=== PATIENT | female | born 1930 | race Caucasian/White ===

== ENCOUNTER 2017-07-03 19:01 | Emergency (ER) | payer OTHER, MEDICARE ==
--- NOTE | 2017-07-03 19:34 | PDOC ---
History of Present Illness - General History Source: Patient Exam Limitations: No Limitations - History of Present Illness Initial Comments: 07/03/17 19:54 The patient is an 87 year old female, with significant past medical history of HTN, fibromyalgia, compression fractures in the back, rotator cuff injury, arthritis, who presents to the emergency complaining of 1 week of dysuria. The patient explains that she is incontinent and wears a pad normally. However, she never experienced this pain with urination. She notes that she always has microscopic blood in her urine and it runs in her family. She visited an Urgent Care prior to coming into the emergency room and was told that she has an abnormal EKG. She denies chest pain. She notes that she has dyspnea on exertion , however, this has been her baseline secondary to the pain after bruising her rib s/p falling off the bed 2 weeks ago. She visited an emergency room after this fall and was told that she had a rib contusion. Denies flank pain. Denies fever, chills, nausea, vomiting. The patient lives in [place] and is followed by a PCP there. She is returning to [place] in 2 days. 07/03/17 19:55 <Meg Bautista - Last Filed: 07/03/17 19:54> <Veronica Mack - Last Filed: 07/03/17 20:54> - General Chief Complaint: Urinary Problem Stated Complaint: DYSURIA Time Seen by Provider: 07/03/17 19:18 Past History <Meg Bautista - Last Filed: 07/03/17 19:54> - Past Medical History Cardiac Disorders: Yes HTN: Yes - Surgical History Appendectomy: Yes Cholecystectomy: Yes - Suicide/Smoking/Psychosocial Hx Smoking History: Never smoked Have you smoked in the past 12 months: No Information on smoking cessation initiated: No Hx Alcohol Use: No Drug/Substance Use Hx: No Substance Use Type: None <Veronica Mack - Last Filed: 07/03/17 20:54> - Past Medical History Allergies/Adverse Reactions: Allergies Allergy/AdvReac Type Severity Reaction Status Date / Time No Known Allergies Allergy Verified 07/03/17 19:11 Home Medications: Ambulatory Orders Cephalexin [Keflex] 500 mg PO BID #14 capsule 07/03/17 Cymbalta 07/03/17 Gabapentin 07/03/17 Levothyroxine 07/03/17 Metoprolol Succinate 07/03/17 Potassium 07/03/17 Tramadol HCl 07/03/17 Vicodin 5-300 mg Tablet 07/03/17 Review of Systems - Review of Systems Able to Perform ROS?: Yes Comments:: 07/03/17 19:55 GENERAL/CONSTITUTIONAL: No fever or chills. No weakness. HEAD, EYES, EARS, NOSE AND THROAT: No change in vision. No ear pain or discharge. No sore throat. GASTROINTESTINAL: No nausea, vomiting, diarrhea or constipation. GENITOURINARY: +dysuria. No frequency, or change in urination. CARDIOVASCULAR: No chest pain or shortness of breath. RESPIRATORY: No cough, wheezing, or hemoptysis. MUSCULOSKELETAL: No joint or muscle swelling or pain. No neck or back pain. SKIN: No rash NEUROLOGIC: No headache, vertigo, loss of consciousness, or change in strength/ sensation. ENDOCRINE: No increased thirst. No abnormal weight change. HEMATOLOGIC/LYMPHATIC: No anemia, easy bleeding, or history of blood clots. ALLERGIC/IMMUNOLOGIC: No hives or skin allergy. <Meg Bautista - Last Filed: 07/03/17 19:54> *Physical Exam - Vital Signs Last Vital Signs Temp Pulse Resp BP Pulse Ox 98.4 F 81 20 117/84 92 L 07/03/17 19:02 07/03/17 19:02 07/03/17 19:02 07/03/17 19:02 07/03/17 19:02 - Physical Exam Comments: 07/03/17 19:55 Constitutional: Awake, alert, oriented. No acute distress. Head: Normocephalic. Atraumatic Eyes: PERRL. EOMI. Conjunctivae are not pale. ENT: Mucous membranes are moist and intact. Posterior pharynx without exudates or erythema. Uvula midline. Neck: Supple. Full ROM. No lymphadenopathy. Cardiovascular: Regular rate. Regular rhythm. S1, S2 regular. Distal pulses are 2+ and symmetric. Pulmonary/Chest: No evidence of respiratory distress. Clear to auscultation bilaterally No wheezing, rales or rhonchi. Abdominal: Soft and non-distended. There is no tenderness. No rebound, guarding or rigidity. No organomegaly. No palpable masses. Good bowel sounds. Back: No CVA tenderness. Musculoskeletal: Scoliosis in the back. Arthritic changes are apparent in the way she is sitting. No edema. No cyanosis. No clubbing. Full range of motion in all extremities. Nocalf tenderness. Radial/pedal pulses are intact and 2+ bilaterally Skin: Skin is warm and dry. No petechiae. No purpura. Neurological: Alert and oriented to person, place, and time. Cranial nerves II -XII are grossly intact. Normal speech. Strength is grossly symmetric. No sensory deficits. Psychiatric: Good eye contact. Normal interaction, affect and behavior. <Meg Bautista - Last Filed: 07/03/17 19:54> - Vital Signs Last Vital Signs Temp Pulse Resp BP Pulse Ox 98.4 F 81 20 117/84 92 L 07/03/17 19:02 07/03/17 19:02 07/03/17 19:02 07/03/17 19:02 07/03/17 19:02 <Veronica Mack - Last Filed: 07/03/17 20:54> Heart Score/ECG Review - ECG Intrepretation Comment:: 07/03/17 20:54 sinus at 79, l axis, nl interval, t wave flattening diffusely <Veronica Mack - Last Filed: 07/03/17 20:54> ED Treatment Course - LABORATORY CBC & Chemistry Diagram: 07/03/17 19:50 07/03/17 19:50 <Veronica Mack - Last Filed: 07/03/17 20:54> Medical Decision Making - Medical Decision Making 07/03/17 20:10 a/p: 87yo female with dysuria x 1 week and a recent rib contusion 1 week ago. -labs -repeat ekg (sent from urgent care saying abnl ekg) -trop -ua/cx -most likely discharge to home, no cp or sob. -hx of fibromyalgia -cxr from urgent care without pna. -most likely UTI 07/03/17 20:49 re-eval: mildly low potassium, po potassium given in ED. pt with UTI on labs, cultures sent pt lives in [place]. pt states returning to [place] . discussed cbc, no elevated wbc count, no fevers. stable for d/c on oral abx. pt states keflex has worked in the past for UTI. states she will see her PMD on sunday upon returning to [place]. Answered all questions. Pt stable for d/c to home. <Veronica Mack - Last Filed: 07/03/17 20:54> *DC/Admit/Observation/Transfer - Attestations Scribe Attestion: 07/03/17 19:55 Documentation prepared by ABELARDO Damon, acting as medical secretary for Veronica Mack DO. <Meg Bautista - Last Filed: 07/03/17 19:54> - Discharge Dispostion Admit: No - Attestations Physician Attestion: 07/03/17 20:54 I, Dr. Veronica Mack DO, attest that this document has been prepared under my direction and personally reviewed by me in its entirety. I further attest, that it accurately reflects all work, treatment, procedures and medical decision -making performed by me. <Veronica Mack - Last Filed: 07/03/17 20:54> Diagnosis at time of Disposition: UTI (urinary tract infection) - Prescriptions Prescriptions: Cephalexin [Keflex] 500 mg PO BID #14 capsule - Referrals Referrals: Chris Delcid MD [Staff Physician] - - Patient Instructions Printed Discharge Instructions: DI for Urinary Tract Infection (UTI) Additional Instructions: Please take all meds as prescribed. Please return to the ED with any further concerns. Please follow up with your PMD. Please have your potassium check again by your PMD.
[2017-07-03 19:48] VITALS: BP 117/84; PULSE 81; TEMP 98.4; BMI 26.5
[2017-07-03 20:03] LABS: EOSINOPHIL 0.5 % (0-4.5); WHITE BLOOD COUNT 8.4 K/mm3 (4.0-10.8)
[2017-07-03 20:06] LABS: BASOPHIL 1.2 % (0-2.0); MCH 28.5 pg (25.7-33.7); MCHC 33.1 g/dl (32.0-36.0); MEAN CELL VOLUME 86.2 fl (80-96); MEAN PLT VOLUME 7.5 fl (7.5-11.1); NEUTROPHILS 70.7 % (42.8-82.8); PLATELET COUNT 388 K/MM3 (134-434); RDW 14.9 % (11.6-15.6)
[2017-07-03 20:15] LABS: ALBUMIN 3.1 g/dl (3.5-5.0); ALK PHOS 56 U/L (32-92); ANION GAP 9 (8-16); BILIRUBIN,TOTAL 0.3 mg/dl (0.2-1.0); CALCIUM 9.2 mg/dl (8.4-10.2); CO2 30 mmol/L (22-28); GLUCOSE,RANDOM 126 mg/dl (74-106); SGOT/AST 20 U/L (10-42); SGPT/ALT 12 U/L (10-40)
[2017-07-03] MEDS ORDERED: POTASSIUM CHLORIDE TABS 20 MEQ TABLET.ER (FP) PO ONE ×2 (20:19→20:20)
[2017-07-03 20:33] LABS: PH,URINE 5.5 (4.5-8); URINE APPEARANCE HAZY; URINE BILIRUBIN 2+ (NEGATIVE); URINE BLOOD 3+ (NEGATIVE); URINE COLOR YELLOW; URINE GLUCOSE (UA) Negative (NEGATIVE); URINE KETONE 1+ (NEGATIVE); URINE NITRITE Positive (NEGATIVE); URINE PROTEIN 2+ (NEGATIVE); URINE UROBILINOGEN 0.2 (0.2-1.0)
[2017-07-03 20:34] LABS: URINE LEUK ESTERASE 1+ (NEGATIVE)
[2017-07-03 20:36] LABS: URINE BACTERIA MANY /hpf (NEGATIVE); URINE WBC MANY (3-5)
[2017-07-03] MEDS ORDERED: CEPHALEXIN MONOHYDRATE 500 MG CAPSULE (UD) PO ONE (20:48)
[2017-07-03] MEDS ORDERED: CEPHALEXIN MONOHYDRATE 500 MG CAPSULE (UD) ONE (21:03)
--- NOTE | 2017-07-04 18:42 | EKG ---
Test Reason : Blood Pressure : / mmHG Vent. Rate : 079 BPM Atrial Rate : 079 BPM P-R Int : 154 ms QRS Dur : 082 ms QT Int : 418 ms P-R-T Axes : 029 -65 -08 degrees QTc Int : 479 ms NORMAL SINUS RHYTHM POSSIBLE LEFT ATRIAL ENLARGEMENT LEFT AXIS DEVIATION NONSPECIFIC T WAVE ABNORMALITY POOR R WAVE PROGRESSION NO PREVIOUS ECGS AVAILABLE Confirmed by MD ODELL MARJORY ([id number]) on 07/04/2017 6:41:52 PM Referred By: DR CHAVEZ Confirmed By:ESTELA ODELL MD
== END 2017-07-03 21:16 | disposition home or self-care (01) ==
LOC: FER 19:01
DX: N39.0 Urinary tract infection, site not specified (principal); I10 Essential (primary) hypertension; M79.7 Fibromyalgia
CPT/HCPCS: 36415; 80053; 81003; 81015; 84484; 85025; 87086; 87186; 93005; 99281-25